=== PATIENT | female | born 1950 | race Caucasian/White ===

== ENCOUNTER → 2018-01-17 | Outpatient (CLI) | payer BC ==
--- NOTE | 2018-01-18 11:45 | MM ---
Reason for exam: screening (asymptomatic). Last mammogram was performed 1 year and 7 months ago. History: Patient is postmenopausal. Physical Findings: A clinical breast exam by your physician is recommended on an annual basis and results should be correlated with mammographic findings. MG Screening Mammo w CAD Bilateral CC and MLO view(s) were taken. Prior study comparison: June 16, 2016, bilateral MG screening mammo w CAD. November 25, 2014, bilateral MG screening mammo w CAD. There are scattered fibroglandular densities. There is no discrete abnormality. No significant changes when compared with prior studies. ASSESSMENT: Negative, BI-RAD 1 RECOMMENDATION: Routine screening mammogram of both breasts in 1 year.
== END | disposition home or self-care (01) ==
LOC: RADMAMWWP 16:16
PROVIDERS: ATTEND Obstetrics & Gynecology
DX: Z12.31 Encounter for screening mammogram for malignant neoplasm of breast (principal)
CPT/HCPCS: 77067

== ENCOUNTER → 2019-07-19 | Outpatient (CLI) | payer BC ==
--- NOTE | 2019-07-19 16:08 | BD ---
EXAMINATION TYPE: Axial Bone Density DATE OF EXAM: 07/19/2019 COMPARISON: 2016 CLINICAL HISTORY: M89.9 Height: 66.5 Weight: 161.5 FRAX RISK QUESTIONS: Alcohol (3 or more units per day): no Family History (Parent hip fracture): no Glucocorticoids (More than 3mos): no (Ex: prednisone, prednisolone, methylprednisolone, dexamethasone, and hydrocortisone). History of Fracture in Adulthood: yes Secondary Osteoporosis: 1. Type 1 Diabetes: no 2. Hyperthyroidism: no 3. Menopause before 45: no 4. Malnutrition: no 5. Chronic liver disease: no Rheumatoid Arthritis: no Current Tobacco Use: no RISK FACTORS HISTORY OF: Family History of Osteoporosis: no Active: yes Diet low in dairy products/other sources of calcium: yes Postmenopausal woman: hysterectomy age 55 MEDICATIONS: vitamins Thyroid Medications: thyroid How Lon-4 years Additional History: EXAM MEASUREMENTS: Bone mineral densitometry was performed using the [employer]. Bone mineral density as measured about the Lumbar spine is: ----- L1-L4(G/cm2): 1.123 T Score Values are as follows: ----- L2: -1.1 ----- L3: -0.6 ----- L4: 0.5 ----- L1-L4: -0.5 Bone mineral density has: increased 2.1 % since study of: 06.16.2016 Bone mineral density about the R hip (g/cm2): 0.755 Bone mineral density about the L hip (g/cm2): 0.828 T Score values are as follows: -----R Neck: -2.0 -----L Neck: -1.5 -----R Total: -0.7 -----L Total: -0.4 Bone mineral density has: increased 1.7 % since study of: 06.16.2016 IMPRESSION: Osteopenia (T Score between -2.5 and -1). There is slightly increased risk of fracture and the patient may be considered for treatment. Re-Screen 2-5 years. NOTE: T-SCORE=SD OF THE YOUNG ADULT MEAN.
--- NOTE | 2019-07-24 09:49 | MM ---
Reason for exam: screening (asymptomatic). Last mammogram was performed 1 year and 6 months ago. History: Patient is postmenopausal. Physical Findings: A clinical breast exam by your physician is recommended on an annual basis and results should be correlated with mammographic findings. MG Screening Mammo w CAD Bilateral CC and MLO view(s) were taken. Prior study comparison: January 17, 2018, bilateral MG screening mammo w CAD. June 16, 2016, bilateral MG screening mammo w CAD. There are scattered fibroglandular densities. No significant changes when compared with prior studies. ASSESSMENT: Negative, BI-RAD 1 RECOMMENDATION: Routine screening mammogram of both breasts in 1 year.
== END | disposition home or self-care (01) ==
LOC: RADMAMWWP 14:27
PROVIDERS: ATTEND Obstetrics & Gynecology
DX: Z12.31 Encounter for screening mammogram for malignant neoplasm of breast (principal); M85.851 Other specified disorders of bone density and structure, right thigh; M85.852 Other specified disorders of bone density and structure, left thigh; M85.88 Other specified disorders of bone density and structure, other site
CPT/HCPCS: 77067; 77080

== ENCOUNTER → 2020-12-30 | Outpatient (CLI) | payer BC ==
--- NOTE | 2021-01-02 10:47 | MM ---
Reason for exam: screening (asymptomatic). Last mammogram was performed 1 year and 5 months ago. History: Patient is postmenopausal. Physical Findings: A clinical breast exam by your physician is recommended on an annual basis and results should be correlated with mammographic findings. MG Screening Mammo w CAD Bilateral CC and MLO view(s) were taken. Prior study comparison: July 19, 2019, bilateral MG screening mammo w CAD. January 17, 2018, bilateral MG screening mammo w CAD. There are scattered fibroglandular densities. No significant changes when compared with prior studies. ASSESSMENT: Negative, BI-RAD 1 RECOMMENDATION: Routine screening mammogram of both breasts in 1 year.
== END | disposition home or self-care (01) ==
LOC: RADMAMWWP 16:25
PROVIDERS: ATTEND Obstetrics & Gynecology
DX: Z12.31 Encounter for screening mammogram for malignant neoplasm of breast (principal)
CPT/HCPCS: 77067

== ENCOUNTER → 2022-08-09 | Outpatient (CLI) | payer MEDICARE ==
--- NOTE | 2022-08-09 19:30 | BD ---
EXAMINATION TYPE: Axial Bone Density DATE OF EXAM: 08/09/2022 CLINICAL HISTORY: 72 years year old Female. ICD-10 CODE: M85.88 DISORDER OF BONE Height: 65 Weight: 163.6 FRAX RISK QUESTIONS: Alcohol (3 or more units per day): NO Family History (Parent hip fracture): NO Glucocorticoids (More than 3mos): NO History of Fracture in Adulthood: PELVIS Secondary Osteoporosis: 1. Type 1 Diabetes: NO 2. Hyperthyroidism: NO 3. Menopause before 45: NO 4. Malnutrition: NO 5. Chronic liver disease: NO Rheumatoid Arthritis: NO Current Tobacco Use: NO RISK FACTORS HISTORY OF: Hip Fracture (Right/Left): NO Spine Fracture: NO History of Wrist Fracture: NO Surgery to Spine/Hip(right/left)/Wrist (right/left): NO Family History of Osteoporosis: NO Active: YES Diet low in dairy products/other sources of calcium: NO Postmenopausal woman: YES Take estrogen and/or progesterone medications: NO Lost more than 2 inches in height since high school: NO Frequent falls: NO Poor Health: NO Hyperparathyroidism: NO Adrenal Insufficiency: NO MEDICATIONS: Prednisone or other steroids: NO Thyroid Medications: SYNTHROID How Long: PAST 7 YEARS Osteoporosis Medications: NO Additional Medications: SYNTHROID, VIT D, Additional History: EXAM MEASUREMENTS: Bone mineral densitometry was performed using the [employer]. Bone mineral density as measured about the Lumbar spine is: ----- L1-L4(G/cm2): 1.167 T Score Values are as follows: ----- L1: -0.8 ----- L2: -0.7 ----- L3: 0.3 ----- L4: 0.3 ----- L1-L4: -0.1 Bone mineral density has: INCREASED 6.0 % since study of: 06/16/2016 Bone mineral density about the R hip (g/cm2): 0.741 Bone mineral density about the L hip (g/cm2): 0.777 T Score values are as follows: -----R Neck: -2.1 -----L Neck: -1.9 -----R Total: -0.5 -----L Total: -0.4 Bone mineral density has: INCREASED 3.3 % since study of: 06/16/2016 FRAX%s: The graph provided illustrates a 13.7% chance for a major osteoporotic fx and a 3.4% chance f or the hips probability for fx in 10 years time. IMPRESSION: Osteopenia (T Score between -2.5 and -1). There is slightly increased risk of fracture and the patient may be considered for treatment. Re-Screen 2-5 years. NOTE: T-SCORE=SD OF THE YOUNG ADULT MEAN.
--- NOTE | 2022-08-10 09:22 | MM ---
Reason for Exam: Screening (asymptomatic). Last mammogram was performed 1 year(s) and 7 month(s) ago. Patient History: Menarche at age 12. First Full-Term at age 23. Left ovary removed at age 52. Right ovary removed at age 52. Hysterectomy at age 52. Postmenopausal. Risk Values: Oly 5 year model risk: 1.6%. NCI Lifetime model risk: 3.9%. Prior Study Comparison: 01/17/2018 Bilateral Screening Mammogram, [facility]. 07/19/2019 Bilateral Screening Mammogram, [facility]. 12/30/2020 Bilateral Screening Mammogram, [facility]. Tissue Density: There are scattered fibroglandular densities. Findings: Analyzed By CAD. There is no suspicious group of microcalcifications or new suspicious mass in either breast. No significant change from prior exams. Overall Assessment: Negative, BI-RAD 1 Management: Screening Mammogram of both breasts in 1 year. A clinical breast exam by your physician is recommended on an annual basis and results should be correlated with mammographic findings. Electronically signed and approved by: Christian Patterson D.O.
== END | disposition home or self-care (01) ==
LOC: RADMAMWWP 15:17
PROVIDERS: ATTEND Obstetrics & Gynecology
DX: Z12.31 Encounter for screening mammogram for malignant neoplasm of breast (principal); M85.851 Other specified disorders of bone density and structure, right thigh; Z78.0 Asymptomatic menopausal state
CPT/HCPCS: 77063; 77067; 77080

== ENCOUNTER → 2024-03-13 | Outpatient (CLI) | payer MEDICARE ==
--- NOTE | 2024-03-14 21:46 | MM ---
Reason for Exam: Screening (asymptomatic). Last mammogram was performed 1 year(s) and 7 month(s) ago. Patient History: Menarche at age 12. First Full-Term at age 23. Left ovary removed at age 52. Right ovary removed at age 52. Hysterectomy at age 52. Postmenopausal. Risk Values: Oly 5 year model risk: 1.6%. NCI Lifetime model risk: 3.7%. Prior Study Comparison: 06/16/2016 Bilateral Screening Mammogram, [facility]. 01/17/2018 Bilateral Screening Mammogram, [facility]. 07/19/2019 Bilateral Screening Mammogram, [facility]. 12/30/2020 Bilateral Screening Mammogram, [facility]. 08/09/2022 Bilateral MG 3D screening mammo w/cad, [facility]. Tissue Density: There are scattered areas of fibroglandular density. Findings: Analyzed By CAD. There is no suspicious group of microcalcifications or new suspicious mass in either breast. Overall Assessment: Negative, BI-RAD 1 Management: Screening Mammogram of both breasts in 1 year. . Patient should continue monthly self-breast exams. A clinical breast exam by your physician is recommended on an annual basis. This exam should not preclude additional follow-up of suspicious palpable abnormalities. Note on Oly scores and lifetime risk: 1. A Oly score greater than 3% is considered moderate risk. If this is the case, consider specialist referral to assess eligibility for a risk reducing agent. 2. If overall lifetime risk for the development of breast cancer is 20% or higher, the patient may qualify for future screening with alternating mammogram and breast MRI. Electronically signed and approved by: Kimberly Wells M.D. Radiologist
== END | disposition home or self-care (01) ==
LOC: RADMAMWWP 09:33
PROVIDERS: ATTEND Family Medicine
DX: Z12.31 Encounter for screening mammogram for malignant neoplasm of breast (principal); Z78.0 Asymptomatic menopausal state
CPT/HCPCS: 77063; 77067

== ENCOUNTER 2025-03-24 23:52 | Observation (INO) | payer MEDICARE ==
--- NOTE | 2025-03-25 00:33 | ED ---
Dizziness HPI - General Chief Complaint: Syncope Stated Complaint: high blood pressure, dizziness Time Seen by Provider: 03/25/25 00:13 Source: patient, RN notes reviewed, old records reviewed Mode of arrival: ambulatory Limitations: no limitations - History of Present Illness Initial Comments: This is a 74 female to ER for evaluation of dizziness, syncopal episode after she woke up today dizziness and vertigo tonight room spinning lightheadedness and feels like she was going to pass out again. Patient has history of vertigo this does feel different. No headache chest pain shortness of breath or abdominal pain. Patient has no new complaints does have concern for vertigo with nausea and elevated blood pressure MD Complaint: dizziness, near syncope -: hour(s) Timing: sudden onset, awoke with symptoms, intermittent Description: "room spinning", lightheadedness, near-syncope History of Same: Yes History of Trauma: No Severity: moderate Worsens With: nothing Associated Symptoms: denies other symptoms - Related Data Allergies Allergy/AdvReac Type Severity Reaction Status Date / Time No Known Allergies Allergy Verified 03/25/25 00:02 Review of Systems ROS Statement: Those systems with pertinent positive or pertinent negative responses have been documented in the HPI. ROS Other: All systems not noted in ROS Statement are negative. Past Medical History Past Medical History: Thyroid Disorder History of Any Multi-Drug Resistant Organisms: None Reported Past Surgical History: Hysterectomy Past Psychological History: No Psychological Hx Reported Smoking Status: Never smoker Past Alcohol Use History: None Reported Past Drug Use History: None Reported General Exam Limitations: no limitations General appearance: alert, in no apparent distress Head exam: Present: atraumatic, normocephalic, normal inspection Eye exam: Present: normal appearance, PERRL, EOMI. Absent: scleral icterus, conjunctival injection, periorbital swelling ENT exam: Present: normal exam, mucous membranes moist Neck exam: Present: normal inspection. Absent: tenderness, meningismus, lymphadenopathy Respiratory exam: Present: normal lung sounds bilaterally. Absent: respiratory distress, wheezes, rales, rhonchi, stridor Cardiovascular Exam: Present: regular rate, normal rhythm, normal heart sounds. Absent: systolic murmur, diastolic murmur, rubs, gallop, clicks GI/Abdominal exam: Present: soft, normal bowel sounds. Absent: distended, tenderness, guarding, rebound, rigid Extremities exam: Present: normal inspection, full ROM, normal capillary refill. Absent: tenderness, pedal edema, joint swelling, calf tenderness Back exam: Present: normal inspection Neurological exam: Present: alert, oriented X3, CN II-XII intact Psychiatric exam: Present: normal affect, normal mood Skin exam: Present: warm, dry, intact, normal color. Absent: rash Course Vital Signs 03/25/25 03/25/25 00:03 02:40 Temperature 97.8 F Pulse Rate 83 77 Respiratory 18 18 Rate Blood Pressure 183/120 151/91 O2 Sat by Pulse 97 95 Oximetry - Reevaluation(s) Reevaluation #1: 03/25/25 01:48 Medical records reviewed Reevaluation #2: 03/25/25 03:22 Patient is still feeling of significant dizziness and near syncopal events, feels unwell but no recurrent syncope Reevaluation #3: 03/25/25 03:23 Patient informed of results questions answered Reevaluation #4: Was pt. sent in by a medical professional or institution (, PA, CHIEF ARCHITECT, urgent care, hospital, or usp...) When possible be specific @ -no Did you speak to anyone other than the patient for history (EMS, parent, family, police, friend...)? What history was obtained from this source @ -no Did you review nursing and triage notes (agree or disagree)? Why? @ -agree Are old charts reviewed (outside hosp., previous admission, EMS record, old EKG, old radiological studies, urgent care reports/EKG's, usp records)? Report findings @ -yes Differential Diagnosis (chest pain, altered mental status, abdominal pain women, abdominal pain men, vaginal bleeding, weakness, fever, dyspnea, syncope, headache, dizziness, GI bleed, back pain, seizure, CVA, palpatations, mental health, musculoskeletal)? @ -prior EKG interpreted by me (3pts min.). @ -yes X-rays interpreted by me (1pt min.). @ -yes negative for acute disease CT interpreted by me (1pt min.). @ -no U/S interpreted by me (1pt. min.). @ -no What testing was considered but not performed or refused? (CT, X-rays, U/S, labs)? Why? @ -none What meds were considered but not given or refused? Why? @ -none Did you discuss the management of the patient with other professionals (professionals i.e. , PA, CHIEF ARCHITECT, lab, RT, psych nurse, social staff worker, centrifugal chiller technician, teacher, home school liaison officer, case finishing machine adjuster)? Give summary @ -no Was smoking cessation discussed for >3mins.? @ -no Was critical care preformed (if so, how long)? @ -no Were there social determinants of health that impacted care today? How? (Homelessness, low income, unemployed, alcoholism, drug addiction, transportation, low edu. Level, literacy, decrease access to med. care, intermediate, rehab)? @ -none Was there de-escalation of care discussed even if they declined (Discuss DNR or withdrawal of care, Hospice)? DNR status @ -no What co-morbidities impacted this encounter? (DM, HTN, Smoking, COPD, CAD, Cancer, CVA, ARF, Chemo, Hep., AIDS, mental health diagnosis, sleep apnea, morbid obesity)? @ -none Was patient admitted / discharged? Hospital course, mention meds given and route, prescriptions, significant lab abnormalities, going to OR and other pertinent info. @ - Undiagnosed new problem with uncertain prognosis? @ -no Drug Therapy requiring intensive monitoring for toxicity (Heparin, Nitro, Insulin, Cardizem)? @ -no Were any procedures done? @ -no Diagnosis/symptom? @ - Acute, or Chronic, or Acute on Chronic? @ -Acute Uncomplicated (without systemic symptoms) or Complicated (systemic symptoms)? @ -Complicated Side effects of treatment? @ -no Exacerbation, Progression, or Severe Exacerbation? @ -exacerbation Poses a threat to life or bodily function? How? (Chest pain, [place], [place], pneumonia, PE, COPD, DKA, ARF, appy, cholecystitis, CVA, Diverticulitis, Homicidal, [place] icidal, threat to staff... and all critical care pts) @ -yes Reevaluation #5: Differential Dizziness: Benign paroxysmal positional Vertigo, Meniere's disease, otitis media, acoustic neuroma, vertebrobasilar insufficiency, cerebellar stroke, encephalitis, hypovolemic, arrhythmia, coronary artery syndrome, anemia, this is not meant to be an all-inclusive list Differential Syncope: Valvular disease, hypertrophic cardiomyopathy, pulmonary embolism, tamponade, tachycardia, bradycardia, [place], hypovolemia, hemorrhage, dissection, anemia, intracranial hemorrhage, seizure, hypoglycemia, carbon monoxide poisoning, this is not meant to be an all-inclusive list. - Consultations Consultation #1: With [facility] who agrees to admit this patient EKG Findings - EKG Comments: EKG Findings:: EKG is sinus 76 RI 207 QRS 88 QTc 409 - EKG Results: EKG: interpreted by TANVIR Medical Decision Making - Medical Decision Making 74 female will be admitted for dizziness multiple near syncopal events and vertiginous symptoms feels unwell and will be admitted for monitoring neuro and cardiology see - Lab Data Result diagrams: 03/25/25 00:34 03/25/25 00:34 Lab Results 03/25/25 03/25/25 03/25/25 Range/Units 00:34 00:34 00:34 WBC 9.39 (4.50-10.00) 10*3/uL RBC 4.73 (4.10-5.20) 10*6/uL Hgb 14.2 (12.0-15.0) g/dL Hct 42.8 (37.2-46.3) % MCV 90.5 (80.0-97.0) fL MCH 30.0 (27.0-32.0) pg MCHC 33.2 (32.0-37.0) g/dL Plt Count 292 (140-440) 10*3/uL MPV 9.4 L (9.5-12.2) fL Immature Gran % (Auto) 0.2 % Neutrophils % 64.6 % Lymphocytes % 26.8 % Monocytes % 7.5 % Eosinophils % 0.0 % Basophils % 0.9 % Immature Gran # 0.02 (0.00-0.04) 10*3/uL Neutrophils # 6.07 (1.80-7.70) 10*3/uL Lymphocytes # 2.52 (0.90-5.00) 10*3/uL Monocytes # 0.70 (0.20-1.00) 10*3/uL Eosinophils # 0.00 L (0.04-0.35) 10*3/uL Basophils # 0.08 (0.00-0.10) 10*3/uL PT 10.6 (10.0-12.5) sec INR 0.9 (<1.2) APTT 22.0 (22.0-30.0) sec D-Dimer 0.36 (<0.60) mg/L FEU Sodium 139 (137-145) mmol/L Potassium 3.6 (3.5-5.1) mmol/L Chloride 101 (98-107) mmol/L Carbon Dioxide 25 (22-30) mmol/L Anion Gap 13 mmol/L BUN 12 (7-17) mg/dL Creatinine 0.65 (0.52-1.04) mg/dL Est GFR (CKD-EPI)AfAm >90 (>60 ml/min/1.73 sqM) Est GFR (CKD-EPI)NonAf 87 (>60 ml/min/1.73 sqM) Glucose 140 H (74-99) mg/dL Plasma Lactic Acid Lester (0.7-2.0) mmol/L Calcium 9.4 (8.4-10.2) mg/dL Phosphorus 3.4 (2.5-4.5) mg/dL Magnesium 1.8 (1.6-2.3) mg/dL Total Bilirubin 0.5 (0.2-1.3) mg/dL AST 32 (14-36) U/L ALT 26 (4-34) U/L Alkaline Phosphatase 86 (38-126) U/L Troponin I (0.000-0.034) ng/mL NT-Pro-B Natriuret Pep 56 pg/mL Total Protein 7.6 (6.3-8.2) g/dL Albumin 4.4 (3.5-5.0) g/dL 03/25/25 03/25/25 Range/Units 00:34 00:34 WBC (4.50-10.00) 10*3/uL RBC (4.10-5.20) 10*6/uL Hgb (12.0-15.0) g/dL Hct (37.2-46.3) % MCV (80.0-97.0) fL MCH (27.0-32.0) pg MCHC (32.0-37.0) g/dL Plt Count (140-440) 10*3/uL MPV (9.5-12.2) fL Immature Gran % (Auto) % Neutrophils % % Lymphocytes % % Monocytes % % Eosinophils % % Basophils % % Immature Gran # (0.00-0.04) 10*3/uL Neutrophils # (1.80-7.70) 10*3/uL Lymphocytes # (0.90-5.00) 10*3/uL Monocytes # (0.20-1.00) 10*3/uL Eosinophils # (0.04-0.35) 10*3/uL Basophils # (0.00-0.10) 10*3/uL PT (10.0-12.5) sec INR (<1.2) APTT (22.0-30.0) sec D-Dimer (<0.60) mg/L FEU Sodium (137-145) mmol/L Potassium (3.5-5.1) mmol/L Chloride (98-107) mmol/L Carbon Dioxide (22-30) mmol/L Anion Gap mmol/L BUN (7-17) mg/dL Creatinine (0.52-1.04) mg/dL Est GFR (CKD-EPI)AfAm (>60 ml/min/1.73 sqM) Est GFR (CKD-EPI)NonAf (>60 ml/min/1.73 sqM) Glucose (74-99) mg/dL Plasma Lactic Acid Lester 1.9 (0.7-2.0) mmol/L Calcium (8.4-10.2) mg/dL Phosphorus (2.5-4.5) mg/dL Magnesium (1.6-2.3) mg/dL Total Bilirubin (0.2-1.3) mg/dL AST (14-36) U/L ALT (4-34) U/L Alkaline Phosphatase (38-126) U/L Troponin I <0.012 (0.000-0.034) ng/mL NT-Pro-B Natriuret Pep pg/mL Total Protein (6.3-8.2) g/dL Albumin (3.5-5.0) g/dL - EKG Data -: EKG Interpreted by Me - Radiology Data Radiology results: report reviewed (CT brain and CTA head neck negative for acute disease), image reviewed Disposition Clinical Impression: Dizziness, Vertigo, Near syncope Disposition: ADMITTED IP TO THIS [facility] Condition: Fair Is patient prescribed a controlled substance at d/c from ED?: No Referrals: José Miguel Gama MD [Primary Care Provider] - 1-2 days Time of Disposition: :20
[2025-03-25 00:41] LABS: Basophils # (A) 0.08 10*3/uL (0.00-0.10); Basophils % (A) 0.9 %; HCT 42.8 % (37.2-46.3); HGB 14.2 g/dL (12.0-15.0); Lymphocytes # (A) 2.52 10*3/uL (0.90-5.00); Lymphocytes % (A) 26.8 %; MCHC 33.2 g/dL (32.0-37.0); MCV 90.5 fL (80.0-97.0); Mean Platelet Volume 9.4 fL (9.5-12.2); Monocytes % (A) 7.5 %; Neutrophils # (A) 6.07 10*3/uL (1.80-7.70); Neutrophils % (A) 64.6 %; Platelet Count 292 10*3/uL (140-440); RBC 4.73 10*6/uL (4.10-5.20); RDW 12.9 % (11.5-14.5); WBC 9.39 10*3/uL (4.50-10.00)
[2025-03-25] MEDS: SODIUM CHLORIDE 0.9% 1,000 ML IV ONE (00:48)
[2025-03-25 00:58] LABS: ALT 26 U/L (4-34); AST 32 U/L (14-36); African American GFR (CKD) >90 (>60 ml/min/1.73 sqM); Albumin 4.4 g/dL (3.5-5.0); Alkaline Phosphatase 86 U/L (38-126); Anion Gap 13 mmol/L; Blood Urea Nitrogen 12 mg/dL (7-17); Calcium 9.4 mg/dL (8.4-10.2); Carbon Dioxide 25 mmol/L (22-30); Chloride 101 mmol/L (98-107); Glucose 140 mg/dL (74-99); Magnesium 1.8 mg/dL (1.6-2.3); Non-African American GFR(CKD) 87 (>60 ml/min/1.73 sqM); Phosphorus 3.4 mg/dL (2.5-4.5); Potassium 3.6 mmol/L (3.5-5.1); Sodium 139 mmol/L (137-145); Total Bilirubin 0.5 mg/dL (0.2-1.3); Total Protein 7.6 g/dL (6.3-8.2)
[2025-03-25 01:04] LABS: INR 0.9 (<1.2); Prothrombin Time 10.6 sec (10.0-12.5)
[2025-03-25 01:07] LABS: NT-Pro-B-Type Natriuretic Pept 56 pg/mL
--- NOTE | 2025-03-25 02:16 | CT ---
EXAM: CT Head Without Intravenous Contrast CLINICAL HISTORY: ITS.REASON CT Reason: vertigo TECHNIQUE: Axial computed tomography images of the head/brain without intravenous contrast. CTDI is 48.9 mGy and DLP is 1137.8 mGy-cm. This CT exam was performed using one or more of the following dose reduction techniques: automated exposure control, adjustment of the mA and/or kV according to patient size, and/or use of iterative reconstruction technique. COMPARISON: No relevant prior studies available. FINDINGS: Brain: Age-related cerebral volume loss. Periventricular and subcortical white matter hypoattenuation, consistent with chronic microangiopathy. No acute intracranial hemorrhage. No midline shift or mass effect. Ventricles: Unremarkable. No ventriculomegaly. Bones/joints: Unremarkable. No acute fracture. Soft tissues: Unremarkable. Sinuses: Unremarkable as visualized. No acute sinusitis. Mastoid air cells: Unremarkable as visualized. No mastoid effusion. IMPRESSION: No acute intracranial hemorrhage. No midline shift or mass effect.
--- NOTE | 2025-03-25 02:55 | CT ---
EXAM: CT Angiography Head With Intravenous Contrast CLINICAL HISTORY: ITS.REASON CT Reason: vertigo TECHNIQUE: Axial computed tomographic angiography images of the head with intravenous contrast. CTDI is 19.95 mGy and DLP is 209.55 mGy-cm. This CT exam was performed using one or more of the following dose reduction techniques: automated exposure control, adjustment of the mA and/or kV according to patient size, and/or use of iterative reconstruction technique. MIP reconstructed images were created and reviewed. COMPARISON: No relevant prior studies available. FINDINGS: Right internal carotid artery: No significant stenosis. No aneurysm. Right anterior cerebral artery: No significant stenosis. No aneurysm. Right middle cerebral artery: No significant stenosis. No aneurysm. Right posterior cerebral artery: No significant stenosis. No aneurysm. Right vertebral artery: Unremarkable. Left internal carotid artery: No significant stenosis. No aneurysm. Left anterior cerebral artery: No significant stenosis. No aneurysm. Left middle cerebral artery: No significant stenosis. No aneurysm. Left posterior cerebral artery: No significant stenosis. No aneurysm. Left vertebral artery: Unremarkable. Basilar artery: No significant stenosis. No aneurysm. IMPRESSION: No significant stenosis. EXAM: CT Angiography Neck With Intravenous Contrast CLINICAL HISTORY: ITS.REASON CT Reason: vertigo TECHNIQUE: Routine carotid CT angiography protocol was performed with intravenous contrast. NASCET criteria using the distal ICAs for comparison were used for evaluation of stenoses. CTDI is 19.95 mGy and DLP is 209.55 mGy-cm. This CT exam was performed using one or more of the following dose reduction techniques: automated exposure control, adjustment of the mA and/or kV according to patient size, and/or use of iterative reconstruction technique. MIP reconstructed images were created and reviewed. COMPARISON: None. FINDINGS: VASCULATURE: Right common carotid artery: No significant stenosis. No dissection. Right internal carotid artery: No significant stenosis. No dissection. Right vertebral artery: No significant stenosis. No dissection. Left common carotid artery: No significant stenosis. No dissection. Left internal carotid artery: No significant stenosis. No dissection. Left vertebral artery: No significant stenosis. No dissection. NECK: Lung apices: Clear. CAROTID STENOSIS REFERENCE USING NASCET CRITERIA: % ICA stenosis = (1 - narrowest ICA diameter/diameter of distal cervical ICA) x 100. Mild - <50% stenosis. Moderate - 50-69% stenosis. Severe - 70-94% stenosis. Near occlusion - 95-99% stenosis. Occluded - 100% stenosis. IMPRESSION: No significant stenosis.
[2025-03-25] MEDS ORDERED: NALOXONE 0.4 MG/ML 1 ML VIAL IV PRN (03:15)
[2025-03-25] MEDS: ONDANSETRON 4 MG/2 ML VIAL IVP PRN (03:56)
[2025-03-25] MEDS: SODIUM CHLORIDE 0.9% 1,000 ML IV SCH (03:57)
--- NOTE | 2025-03-25 08:26 | P.HPIM ---
History of Present Illness H&P Date: 03/25/25 This is a 74-year-old female who presented to the emergency department with complaints of dizziness and syncopal episode after she woke up yesterday morning. Patient reports she has felt like the room is spinning and feels like she could pass out again. Patient does have a history of vertigo but reports this feeling feels different. Patient denies any chest pain. She does report a few episodes of vomiting yesterday. Patient seen this morning laying in bed resting comfortably. She is still reporting vertigo. CT of the brain was normal. Home medications not listed at time of dictation. Review of Systems Constitutional: Denies chills, Denies fever Ears, nose, mouth and throat: Reports vertigo Cardiovascular: Denies chest pain, Denies dyspnea on exertion Respiratory: Denies cough, Denies dyspnea Musculoskeletal: Denies arm numbness/tingling, Denies leg numbness/tingling Neurological: Reports vertigo, Denies headaches Past Medical History Past Medical History: Thyroid Disorder History of Any Multi-Drug Resistant Organisms: None Reported Past Surgical History: Hysterectomy Past Psychological History: No Psychological Hx Reported Smoking Status: Never smoker Past Alcohol Use History: None Reported Past Drug Use History: None Reported Medications and Allergies Allergies Allergy/AdvReac Type Severity Reaction Status Date / Time No Known Allergies Allergy Verified 03/25/25 00:02 Physical Exam Vitals: Vital Signs Temp Pulse Pulse Pulse Pulse Resp BP 03/25/25 07:00 97.6 F 88 16 03/25/25 04:21 97.5 F L 84 84 80 18 03/25/25 03:58 74 17 151/93 03/25/25 02:40 77 18 151/91 03/25/25 00:03 97.8 F 83 18 183/120 BP BP BP Pulse Ox 03/25/25 07:00 148/83 93 L 03/25/25 04:21 154/90 149/88 142/87 97 03/25/25 03:58 97 03/25/25 02:40 95 03/25/25 00:03 97 Intake and Output 03/24/25 03/25/25 03/25/25 22:59 06:59 14:59 Other: # Voids 1 1 Weight 74.843 kg - Constitutional General appearance: cooperative, no acute distress - EENT Eyes: PERRLA - Neck Neck: no lymphadenopathy, normal ROM, no rigidity - Respiratory Respiratory: bilateral: CTA - Cardiovascular Heart sounds: normal: S1, S2 - Gastrointestinal General gastrointestinal: soft, no tenderness - Integumentary Integumentary: normal, normal turgor - Musculoskeletal Musculoskeletal: strength equal bilaterally - Psychiatric Psychiatric: A&O x's 3, appropriate affect, intact judgment & insight Results CBC & Chem 7: 03/25/25 00:34 03/25/25 00:34 Labs: Abnormal Lab Results - Last 24 Hours (Table) 03/25/25 03/25/25 Range/Units 00:34 00:34 MPV 9.4 L (9.5-12.2) fL Eosinophils # 0.00 L (0.04-0.35) 10*3/uL Glucose 140 H (74-99) mg/dL Thrombosis Risk Factor Assmnt - Choose All That Apply Any of the Below Risk Factors Present?: Yes Each Factor Represents 1 point: Obesity (BMI >25) Other Risk Factors: Yes Each Risk Factor Represents 3 Points: Age 75 years or older Other congenital or acquired thrombophilia - If yes, enter type in comment: No Thrombosis Risk Factor Assessment Total Risk Factor Score: 4 Thrombosis Risk Factor Assessment Level: Moderate Risk Assessment and Plan (1) Dizziness Current Visit: Yes Status: Acute Code(s): R42 - DIZZINESS AND GIDDINESS SNOMED Code(s): 373058313 (2) Near syncope Current Visit: Yes Status: Acute Code(s): R55 - SYNCOPE AND COLLAPSE SNOMED Code(s): 628881522 (3) Vertigo Current Visit: Yes Status: Acute Code(s): R42 - DIZZINESS AND GIDDINESS SNOMED Code(s): 312308800 Plan: Await consults with neurology and cardiology. Order an Echo. Patient seen and evaluated by nurse practitioner, physician in agreement with plan.
--- NOTE | 2025-03-25 09:50 | P.CRDCN ---
History of Present Illness History of present illness: HISTORY OF PRESENTING ILLNESS This is a pleasant 74-year-old female past medical history significant for hypothyroidism. 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 We have been asked to see in consultation for syncope. Yesterday she went for a walk and after walking a short distance she started feeling weak in the legs with no strength. She had to go down to the ground to prevent falling. She did not have actual syncope or loss of consciousness. Today she still feels mildly lightheaded with position changes. No palpitations, chest pain or shortness of breath. Orthostatic vital signs negative, BP actually increases with position change. DIAGNOSTICS EKG reveals sinus rhythm with sinus arrhythmia heart rate of 76. Telemetry tracings indicate unremarkable with no arrhythmia or bradycardia noted. CT angiography is negative. Laboratory reviewed, CBC unremarkable, D-dimer negative, sodium 139, potassium 3.6, creatinine 0.65, NT proBNP 56 and troponin negative x 1. She takes no daily cardiac medications. REVIEW OF SYSTEMS At the time of my exam: CONSTITUTIONAL: Denies fever or chills. CARDIOVASCULAR: Denies chest pain, shortness of breath, orthopnea, PND or palpitations. RESPIRATORY: Denies cough. GASTROINTESTINAL: Denies abdominal pain, diarrhea, constipation, nausea or vomiting. MUSCULOSKELETAL: Denies myalgias. NEUROLOGIC: Denies numbness, tingling, headache or weakness. ENDOCRINE: Denies fatigue, weight change, polydipsia or polyurina. GENITOURINARY: Denies burning, hematuria or urgency with micturation. HEMATOLOGIC: Denies history of anemia or bleeding. PHYSICAL EXAMINATION Blood pressure [] heart rate [] afebrile and maintaining oxygen saturation on []. CONSTITUTIONAL: No apparent distress. HEENT: Head is normocephalic. Pupils are equal, round. Sclerae anicteric. Mucous membranes of the mouth are moist. No JVD. No carotid bruit. CHEST EXAMINATION: Lungs are clear to auscultation. No chest wall tenderness is noted on palpation or with deep breathing. HEART EXAMINATION: Regular rate and rhythm. S1, S2 heard. No murmurs, gallops or rub. ABDOMEN: Soft, nontender. EXTREMITIES: 2+ peripheral pulses, no lower extremity edema and no calf tenderness. NEUROLOGIC EXAMINATION: Patient is awake, alert and oriented x3. ASSESSMENT Dizziness suggestive of vertigo Hypothyroidism PLAN Obtain 2D echo and doppler study. Continue with neuro evaluation. Stable from a cardiac perspective. Follow up on discharge with Dr. Strange. Thank you kindly for this consultation. Nurse Practitioner note has been reviewed, I agree with a documented findings and plan of care. Patient was seen and examined. Past Medical History Past Medical History: Thyroid Disorder History of Any Multi-Drug Resistant Organisms: None Reported Past Surgical History: Hysterectomy Past Psychological History: No Psychological Hx Reported Smoking Status: Never smoker Past Alcohol Use History: None Reported Past Drug Use History: None Reported Medications and Allergies Allergies Allergy/AdvReac Type Severity Reaction Status Date / Time No Known Allergies Allergy Verified 03/25/25 00:02 Physical Exam Vitals: Vital Signs Temp Pulse Pulse Pulse Pulse Resp BP 03/25/25 07:00 97.6 F 88 16 03/25/25 04:21 97.5 F L 84 84 80 18 03/25/25 03:58 74 17 151/93 03/25/25 02:40 77 18 151/91 03/25/25 00:03 97.8 F 83 18 183/120 BP BP BP Pulse Ox 03/25/25 07:00 148/83 93 L 03/25/25 04:21 154/90 149/88 142/87 97 03/25/25 03:58 97 03/25/25 02:40 95 03/25/25 00:03 97 Intake and Output 03/24/25 03/25/25 03/25/25 22:59 06:59 14:59 Other: # Voids 1 1 Weight 74.843 kg Results 03/25/25 00:34 03/25/25 00:34 Cardiac Enzymes 03/25/25 03/25/25 Range/Units 00:34 00:34 AST 32 (14-36) U/L Troponin I <0.012 (0.000-0.034) ng/mL Coagulation 03/25/25 Range/Units 00:34 PT 10.6 (10.0-12.5) sec APTT 22.0 (22.0-30.0) sec CBC 03/25/25 Range/Units 00:34 WBC 9.39 (4.50-10.00) 10*3/uL RBC 4.73 (4.10-5.20) 10*6/uL Hgb 14.2 (12.0-15.0) g/dL Hct 42.8 (37.2-46.3) % Plt Count 292 (140-440) 10*3/uL Comprehensive Metabolic Panel 03/25/25 Range/Units 00:34 Sodium 139 (137-145) mmol/L Potassium 3.6 (3.5-5.1) mmol/L Chloride 101 (98-107) mmol/L Carbon Dioxide 25 (22-30) mmol/L BUN 12 (7-17) mg/dL Creatinine 0.65 (0.52-1.04) mg/dL Glucose 140 H (74-99) mg/dL Calcium 9.4 (8.4-10.2) mg/dL AST 32 (14-36) U/L ALT 26 (4-34) U/L Alkaline Phosphatase 86 (38-126) U/L Total Protein 7.6 (6.3-8.2) g/dL Albumin 4.4 (3.5-5.0) g/dL Current Medications Generic Name Dose Route Start Last Admin Trade Name Freq PRN Reason Stop Dose Admin Amlodipine Besylate 5 mg 03/25/25 09:00 Amlodipine 5 Mg Tab PO DAILY TAYLOR Sodium Chloride 1,000 mls @ 75 mls/hr 03/25/25 03:15 03/25/25 03:57 Saline 0.9% IV 75 mls/hr .[id number] TAYLOR Administration Metoprolol Tartrate 12.5 mg 03/25/25 09:00 Metoprolol Tartrate 12.5 Mg Tab PO BID TAYLOR Naloxone HCl 0.2 mg 03/25/25 03:15 Naloxone 0.4 Mg/Ml 1 Ml Vial IV Q2M PRN Opioid Reversal Ondansetron HCl 4 mg 03/25/25 03:15 03/25/25 03:56 Ondansetron 4 Mg/2 Ml Vial IVP 4 mg Q8HR PRN Administration Nausea And Vomiting Intake and Output 03/24/25 03/25/25 03/25/25 22:59 06:59 14:59 Other: # Voids 1 1 Weight 74.843 kg 03/25/25 00:34 03/25/25 00:34
[2025-03-25] MEDS: amLODIPine 5 MG TAB PO SCH (10:13)
[2025-03-25] MEDS: METOPROLOL TARTRATE 12.5 MG TAB PO SCH (10:13)
--- NOTE | 2025-03-25 11:49 | P.CNNES ---
History of Present Illness Consult date: 03/25/25 Requesting physician: Aly Campbell Reason for Consult: vertigo History of Present Illness: This is a 74-year-old woman who presents emergency department because of dizziness. Patient states that yesterday she woke up around 7 AM and she was feeling dizzy and she felt the room spinning. She states that she is having dizziness with movement. Yesterday when she woke up she felt dizzy and then fell to the ground but denies passing out. Later during the day she felt she had nausea and she had also had vomiting. She denies any ringing of the ears, any focal weakness, any speech difficulty, and difficulty swallowing or vision issues. Denies any head trauma or any recent sickness. Patient has dizziness with movement and alleviated with rest. Denies any history of stroke. Denies any tobacco, alcohol or illicit drug use. Denies being on any antiplatelet. Denies any history of A-fib. Some of the workup during this hospital visit consisted of: Orthostatic vitals is negative. I reviewed the lab workup. CT of the head is reported as no acute intracranial hemorrhage. I reviewed the CT and agree with the report. CT angiography of the head and neck is reported as no significant stenosis. Review of Systems As per HPI. Past Medical History Past Medical History: Thyroid Disorder History of Any Multi-Drug Resistant Organisms: None Reported Past Surgical History: Hysterectomy Past Psychological History: No Psychological Hx Reported Smoking Status: Never smoker Past Alcohol Use History: None Reported Past Drug Use History: None Reported Medications and Allergies Home Medications Medication Instructions Recorded Confirmed Type Levothyroxine Sodium [Synthroid] 62.5 mcg PO DAILY 03/25/25 03/25/25 History Allergies Allergy/AdvReac Type Severity Reaction Status Date / Time No Known Allergies Allergy Verified 03/25/25 11:08 Physical Examination - Vital Signs Vital Signs: Vital Signs Temp Pulse Pulse Pulse Pulse Resp BP 03/25/25 07:00 97.6 F 88 16 03/25/25 04:21 97.5 F L 84 84 80 18 03/25/25 03:58 74 17 151/93 03/25/25 02:40 77 18 151/91 03/25/25 00:03 97.8 F 83 18 183/120 BP BP BP Pulse Ox 03/25/25 07:00 148/83 93 L 03/25/25 04:21 154/90 149/88 142/87 97 03/25/25 03:58 97 03/25/25 02:40 95 03/25/25 00:03 97 Intake and Output 03/24/25 03/25/25 03/25/25 22:59 06:59 14:59 Intake Total 100 Balance 100 Intake: Oral 100 Other: # Voids 1 1 Weight 74.843 kg GENERAL: The patient is lying in bed and is not in acute distress. NEUROLOGICAL: Higher mental function: The patient is awake, alert, oriented to self, place and time. Patient is following commands. No aphasia and no neglect. Cranial nerves: The pupils are round, equal and reactive to light and accommodation. Visual rico are full to confrontation throughout. Extraocular movement is intact no nystagmus is noted. Facial sensation is normal to touch throughout. The facial strength is normal throughout. Hearing is normal bilaterally to hand rub. Tongue is midline and moved [id number] without any difficulty. No dysarthria is noted. Shoulder shrug is normal bilaterally. Motor: The strength is 5 over 5 throughout. Normal tone and bulk. Cerebellum: Normal finger to nose heel to cooper bilaterally. Sensation: Sensation is normal to touch throughout. Reflexes (right/left): 2+ throughout. Plantars are downgoing bilaterally. Results - Laboratory Findings CBC and BMP: 03/25/25 00:34 03/25/25 00:34 Abnormal Lab Findings: Abnormal Labs 03/25/25 03/25/25 00:34 00:34 MPV 9.4 L Eosinophils # 0.00 L Glucose 140 H Assessment and Plan Assessment: This is a 74-year-old woman who presents emergency department because of dizziness upon waking up and she feels dizziness is with ambulation and she fell to the ground. She denies any loss of consciousness Acute vertigo and this seems more likely peripheral. Rule out stroke Plan: I ordered MRI of the brain with and without I started the patient on meclizine 25 mg 1 tablet 3 times daily scheduled for 7 days and after that as needed. If MRI of the brain is negative then recommend the patient to be eval by ENT and recommend vestibular rehab therapy as an outpatient if continues to have symptoms. Will defer the rest of the medical management to primary and other specialist Thank you for the consultation. Time with Patient: Greater than 30
[2025-03-25] MEDS: LEVOTHYROXINE 125 MCG TAB PO SCH (12:31)
[2025-03-25] MEDS: MECLIZINE 25 MG TAB PO SCH (12:31)
[2025-03-25 20:12] VITALS: RESP 16
[2025-03-26] MEDS: LEVOTHYROXINE 125 MCG TAB PO SCH (06:09)
--- NOTE | 2025-03-26 08:25 | P.PN ---
Subjective Progress Note Date: 03/26/25 This is a 74-year-old female who presented to the emergency department with complaints of dizziness and syncopal episode after she woke up yesterday morning. Patient reports she has felt like the room is spinning and feels like she could pass out again. Patient does have a history of vertigo but reports this feeling feels different. Patient denies any chest pain. She does report a few episodes of vomiting yesterday. Patient seen this morning laying in bed resting comfortably. She is still reporting vertigo. CT of the brain was normal. Home medications not listed at time of dictation. 03/26/2025 Patient seen this morning sitting up in bed resting comfortably. Patient reports her dizziness is improved. She was seen and evaluated by cardiology and neurology yesterday. Cardiology started her on metoprolol and amlodipine. Echo was done but result is not back yet. Neurology has ordered an MRI and started patient on meclizine. Patient is tolerating diet and her vitals are stable. Objective - Vital Signs Vital signs: Vital Signs Temp 98.0 F 03/26/25 07:00 Pulse 65 03/26/25 07:00 Resp 16 03/26/25 07:00 BP 122/75 03/26/25 07:00 Pulse Ox 95 03/26/25 07:00 FiO2 Intake & Output 03/25/25 03/26/25 03/26/25 18:59 06:59 18:59 Intake Total 300 Balance 300 Intake: Oral 300 Other: # Voids 4 2 - Constitutional General appearance: Present: cooperative, no acute distress - EENT Eyes: Present: PERRLA - Neck Neck: Present: normal ROM. Absent: lymphadenopathy, rigidity - Respiratory Respiratory: bilateral: CTA - Cardiovascular Heart sounds: normal: S1, S2 - Gastrointestinal General gastrointestinal: Present: soft. Absent: tenderness - Integumentary Integumentary: Present: normal, normal turgor - Musculoskeletal Musculoskeletal: Present: strength equal bilaterally - Psychiatric Psychiatric: Present: A&O x's 3, appropriate affect, intact judgment & insight - Labs CBC & Chem 7: 03/25/25 00:34 03/25/25 00:34 Assessment and Plan (1) Dizziness Current Visit: Yes Status: Acute Code(s): R42 - DIZZINESS AND GIDDINESS SNOMED Code(s): 574829859 (2) Near syncope Current Visit: Yes Status: Acute Code(s): R55 - SYNCOPE AND COLLAPSE SNOMED Code(s): 007097541 (3) Vertigo Current Visit: Yes Status: Acute Code(s): R42 - DIZZINESS AND GIDDINESS SNOMED Code(s): 822403795 (4) Hypothyroid Current Visit: Yes Status: Acute Code(s): E03.9 - HYPOTHYROIDISM, UNSPECIFIED SNOMED Code(s): 08893754 Plan: Await result of MRI. Anticipate possible discharge later today or tomorrow if MRI is normal. Patient seen and evaluated by nurse practitioner, physician in agreement with plan.
[2025-03-26 08:35] LABS: BUN/Creat Ratio 16.71 Ratio (12.00-20.00); Blood Urea Nitrogen 11.7 mg/dL (9.0-27.0); Chloride 109 mmol/L (96-109); Glucose 95 mg/dL (70-110); Potassium 3.9 mmol/L (3.5-5.5); Sodium 143 mmol/L (135-145)
[2025-03-26 08:36] LABS: ALT 21 U/L (8-44); AST 24 U/L (13-35); Albumin 3.8 g/dL (3.8-4.9); Albumin/Globulin Ratio 1.58 Ratio (1.60-3.17); Alkaline Phosphatase 78 U/L (41-126); Calcium 8.9 mg/dL (8.7-10.3); Globulin 2.4 g/dL (1.6-3.3); Phosphorus 3.2 mg/dL (2.4-5.1); Total Bilirubin 0.5 mg/dL (0.3-1.2); Total Protein 6.2 g/dL (6.2-8.2)
[2025-03-26 08:39] LABS: Basophils # (A) 0.07 X 10*3/uL (0.00-0.10); Basophils % (A) 0.7 %; Eosinophils # (A) 0.07 X 10*3/uL (0.04-0.35); Eosinophils % (A) 0.7 %; HCT 38.3 % (37.2-46.3); HGB 12.4 g/dL (12.0-15.0); Lymphocytes # (A) 3.01 X 10*3/uL (0.90-5.00); Lymphocytes % (A) 31.7 %; MCHC 32.4 g/dL (32.0-37.0); MCV 92.7 FL (80.0-97.0); Mean Platelet Volume 10.3 FL (9.5-12.2); Monocytes # (A) 0.67 X 10*3/uL (0.20-1.00); Monocytes % (A) 7.1 %; NRBC Per 100 WBC 0 X 10*3/uL (0.00-0.01); Neutrophils # (A) 5.64 X 10*3/uL (1.80-7.70); Neutrophils % (A) 59.5 %; Platelet Count 257 X 10*3/uL (140-440); RBC 4.13 X 10*6/uL (4.10-5.20); RDW 13.6 % (11.5-14.5); WBC 9.49 X 10*3/uL (4.50-10.00)
--- NOTE | 2025-03-26 09:41 | CA ---
Transthoracic Echo Report Name: Owen Willis Age: 74 Gender: F : 1950 Exam Date: 03/25/2025 09:46 Exam Location: [facility] Ht (in): 67 Wt (lb): 165 Ordering Physician: José Miguel Gama MD Attending/Referring Phys: Alloy Weigher Ana Guzmán RDCS Procedure CPT: Indications: vertigo Cardiac Hx: Technical Quality: Good Contrast 1: Total Dose (mL): Contrast 2: Total Dose (mL): MEASUREMENTS (Male / Female) Normal Values 2D ECHO LV Diastolic Diameter PLAX 5.2 cm 4.2 - 5.9 / 3.9 - 5.3 cm LV Systolic Diameter PLAX 3.6 cm IVS Diastolic Thickness 1.2 cm 0.6 - 1.0 / 0.6 - 0.9 cm LVPW Diastolic Thickness 1.3 cm 0.6 - 1.0 / 0.6 - 0.9 cm LV Relative Wall Thickness 0.5 LVOT Diameter 1.9 cm LV Diastolic Volume MOD BP 95.1 cm??? 67 - 155 / 56 - 104 cm??? LV Systolic Volume MOD BP 37.6 cm??? 22 - 58 / 19 - 49 cm??? LV Ejection Fraction MOD BP 60.5 % >= 55 % LV Cardiac Index MOD BP 2613.7 cm???/min???m??? LV Diastolic Volume MOD 4C 88.2 cm??? LV Systolic Volume MOD 4C 32.0 cm??? LV Ejection Fraction MOD 4C 63.7 % LV Cardiac Index MOD 4C 2552.4 cm???/min???m??? LV Diastolic Length 4C 7.0 cm LV Systolic Length 4C 5.9 cm LV Diastolic Volume MOD 2C 93.1 cm??? LV Systolic Volume MOD 2C 43.3 cm??? LV Ejection Fraction MOD 2C 53.5 % LV Cardiac Index MOD 2C 2264.7 cm???/min???m??? LV Diastolic Length 2C 7.7 cm LV Systolic Length 2C 6.1 cm LA Volume 66.7 cm??? 18 - 58 / 22 - 52 cm??? LA Volume Index 35.2 cm???/m??? 16 - 28 cm???/m??? DOPPLER AV Peak Velocity 134.8 cm/s AV Peak Gradient 7.3 mmHg AV Mean Velocity 94.2 cm/s AV Mean Gradient 3.9 mmHg AV Velocity Time Integral 26.9 cm LVOT Peak Velocity 113.4 cm/s LVOT Peak Gradient 5.1 mmHg LVOT Velocity Time Integral 24.1 cm LVOT Stroke Volume 66.2 cm??? LVOT Stroke Volume Index 35.5 ml/m??? LVOT Cardiac Index 3005.5 cm???/min???m??? AV Area Cont Eq vti 2.5 cm??? AV Area Cont Eq pk 2.3 cm??? MV Area PHT 3.8 cm??? Mitral E Point Velocity 74.7 cm/s Mitral A Point Velocity 101.1 cm/s Mitral E to A Ratio 0.7 MV Deceleration Time 198.3 ms TR Peak Velocity 253.9 cm/s TR Peak Gradient 25.8 mmHg Right Atrial Pressure 5.0 mmHg Pulmonary Artery Systolic Pressu 30.8 mmHg Right Ventricular Systolic Press 30.8 mmHg PV Peak Velocity 117.6 cm/s PV Peak Gradient 5.5 mmHg FINDINGS Left Ventricle Left ventricular ejection fraction is estimated at 60 %. Mildly increased septal wall thickness. Moderately increased posterior wall thickness. Left ventricular cavity size normal. No obvious regional wall motion abnormalities. Right Ventricle Mild right ventricular dilatation. Normal right ventricular global systolic function. Right ventricular systolic pressure within normal limits. Right Atrium Normal right atrial size. Left Atrium Moderately increased left atrial volume. Mildly increased left atrial area. Mitral Valve Structurally normal mitral valve. No evidence for mitral valve prolapse. No mitral stenosis. Trace mitral regurgitation. Aortic Valve Trileaflet aortic valve. No aortic valve stenosis or regurgitation. Tricuspid Valve Structurally normal tricuspid valve. No tricuspid stenosis. Mild tricuspid regurgitation. Tricuspid regurgitation jet directed toward the septum. Pulmonic Valve Pulmonic valve not well visualized. No pulmonic stenosis. Trace pulmonic regurgitation. Pericardium No pericardial effusion. Aorta Normal size aortic root and proximal ascending aorta. CONCLUSIONS Normal LV size and systolic function. Minimal mitral and tricuspid regurgitation. No pulmonary hypertension. No pericardial effusion Previewed by: Dr. Jax Castro MD (Electronically Signed) Final Date: 26 Mar 2025 09:39
--- NOTE | 2025-03-26 10:48 | P.PN ---
Subjective HISTORY OF PRESENT ILLNESS: This is a pleasant 74-year-old female past medical history significant for hypothyroidism. 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 We have been asked to see in consultation for syncope. Yesterday she went for a walk and after walking a short distance she started feeling weak in the legs wit h no strength. She had to go down to the ground to prevent falling. She did not have actual syncope or loss of consciousness. Today she still feels mildly lightheaded with position changes. No palpitations, chest pain or shortness of breath. Orthostatic vital signs negative, BP actually increases with position change. DIAGNOSTICS EKG reveals sinus rhythm with sinus arrhythmia heart rate of 76. Telemetry tracings indicate unremarkable with no arrhythmia or bradycardia noted. CT angiography is negative. Laboratory reviewed, CBC unremarkable, D-dimer negative, sodium 139, potassium 3.6, creatinine 0.65, NT proBNP 56 and troponin negative x 1. She takes no daily cardiac medications. 03/26/2025 Patient examined this morning at the bedside. Patient states she is feeling better this morning. She denies any chest pain or pressure. Denies any shortness of breath. Vital signs are stable. She has been evaluated by neurology and MRI of the brain is pending. Echocardiogram completed revealing ejection fraction 60%, minimal MR and minimal TR. PHYSICAL EXAM: VITAL SIGNS: Reviewed. GENERAL: Well-developed in no acute distress. NECK: Supple. No JVD or thyromegaly LUNGS: Respirations even and unlabored. Lungs essentially clear to auscultation bilaterally. HEART: Regular rate and rhythm. S1 and S2 heard. EXTREMITIES: Normal range of motion. No clubbing or cyanosis. Peripheral pulses intact. No lower extremity edema ASSESSMENT: Dizziness suggestive of vertigo Hypothyroidism Hypertension PLAN: Continue current cardiac medications Neurology following. MRI pending. Patient is currently stable from a cardiac standpoint with no further inpatient recommendations We will sign off. Please reconsult if needed. Nurse practitioner note has been reviewed by physician. Signing provider agrees with the documented findings, assessment, and plan of care documented by BOILER WELDER as a scribe. Objective - Vital Signs Vital signs: Vital Signs Temp 98.0 F 03/26/25 07:00 Pulse 65 03/26/25 07:00 Resp 16 03/26/25 07:00 BP 122/75 03/26/25 07:00 Pulse Ox 95 03/26/25 07:00 FiO2 Intake & Output 03/25/25 03/26/25 03/26/25 18:59 06:59 18:59 Intake Total 300 480 Balance 300 480 Intake: Oral 300 480 Other: # Voids 4 2 - Labs CBC & Chem 7: 03/26/25 04:23 03/26/25 04:23 Labs: Abnormal Lab Results - Last 24 Hours (Table) 03/26/25 Range/Units 04:23 Albumin/Globulin Ratio 1.58 L (1.60-3.17) Ratio
[2025-03-26 14:26] VITALS: BP 115/75; PULSE 63; TEMP 98.1
--- NOTE | 2025-03-26 15:31 | P.PN ---
Subjective Progress Note Date: 03/26/25 I am following up with the patient and patient feels she is drastically better today compared to initial presentation. Dizziness is drastically better. No new neurological issues. Objective - Vital Signs Vital signs: Vital Signs Temp 98.1 F 03/26/25 14:25 Pulse 63 03/26/25 14:25 Resp 16 03/26/25 14:25 BP 115/75 03/26/25 14:25 Pulse Ox 96 03/26/25 14:25 FiO2 Intake & Output 03/25/25 03/26/25 03/26/25 18:59 06:59 18:59 Intake Total 300 600 Balance 300 600 Intake: Oral 300 600 Other: # Voids 4 2 2 - Exam GENERAL: The patient is lying in bed and is not in acute distress. NEUROLOGICAL: Higher mental function: The patient is awake, alert, oriented to self, place and time. Patient is following commands. No aphasia and no neglect. Cranial nerves: The pupils are round, equal and reactive to light and accommodation. Visual rico are full to confrontation throughout. Extraocular movement is intact no nystagmus is noted. Facial sensation is normal to touch throughout. The facial strength is normal throughout. Hearing is normal bilaterally to hand rub. Tongue is midline and moved [id number] without any difficulty. No dysarthria is noted. Shoulder shrug is normal bilaterally. Motor: The strength is 5 over 5 throughout. Normal tone and bulk. Cerebellum: Normal finger to nose heel to cooper bilaterally. Sensation: Sensation is normal to touch throughout. Some of the workup during this hospital visit consisted of: Orthostatic vitals is negative. I reviewed the lab workup. CT of the head is reported as no acute intracranial hemorrhage. I reviewed the CT and agree with the report. CT angiography of the head and neck is reported as no significant stenosis. The echo is reported as normal left ventricular size and solid function. No pulmonary hypertension. - Labs CBC & Chem 7: 03/26/25 04:23 03/26/25 04:23 Labs: Abnormal Lab Results - Last 24 Hours (Table) 03/26/25 Range/Units 04:23 Albumin/Globulin Ratio 1.58 L (1.60-3.17) Ratio Assessment and Plan Assessment: This is a 74-year-old woman who presents emergency department because of dizziness upon waking up and she feels dizziness is with ambulation and she fell to the ground. She denies any loss of consciousness Acute vertigo and this seems more likely peripheral. Rule out stroke which seems unlikely---symptoms better today. Plan: Pending MRI of the brain with and without if unable to obtain it today then recommend a repeat CT of the head and if it is negative patient is cleared from neurology perspective. I started the patient on meclizine 25 mg 1 tablet 3 times daily scheduled for 7 days and after that as needed. Recommend follow-up with ENT and vestibular rehab therapy if the patient continues to have dizziness as an outpatient. Also recommend outpatient MRI of the brain with and without if unable to obtain as an inpatient. If MRI of the brain is negative then recommend the patient to be eval by ENT and recommend vestibular rehab therapy as an outpatient if continues to have symptoms. Will defer the rest of the medical management to primary and other specialist Time with Patient: Less than 30
--- NOTE | 2025-03-26 16:14 | P.DS ---
Providers Date of admission: 03/25/25 03:19 Expected date of discharge: 03/26/25 Attending physician: José Miguel Gama Consults: 03/25/25 03:15 Consult Physician Routine Consulting Provider: Naif Pérez Consult Reason/Comments: vertigo Do you want consulting provider notified?: Yes Primary care physician: José Miguel Gama [facility] Course: Chief complaint Vertigo and dizziness. History of present illness Owen Willis, a 74-year-old female, was admitted for vertigo and dizziness. Initial workup, including a CT scan, was nominal. She was found to have a slight elevation in blood pressure. She was started on amlodipine, metoprolol, and meclizine. Vertigo is currently at a minimum. ROS is normal. Past medical history History of hypertension. Admitted for vertigo and dizziness. Physical exam HEENT normocephalic atraumatic extra movements are intact tympanic membranes are clear to otoscopic exam oropharynx is nominal. Neck is supple Heart regular rate and rhythm no murmur Lungs: CTA Abdomen: soft non tender good BS normal and active Ext: no edema Psychiatric: Mood and affect nominal Imaging results - CT scan nominal Assessment - Vertigo - Dizziness - Hypertension Plan - Continue amlodipine and metoprolol 12.5 mg twice daily to manage blood pressure. - Continue meclizine 25 mg three times daily to manage vertigo symptoms. - Schedule an MRI as an outpatient to further evaluate neurological status after clearance from neurology. Prescription - Amlodipine - Metoprolol 12.5 mg, twice daily - Meclizine 25 mg, three times daily Appointments - MRI to be scheduled as an outpatient after clearance by neurology. Visit diagnoses suggestions (2) - Dizziness and giddiness [R42] - Essential (primary) hypertension [I10] Patient Condition at Discharge: Fair Plan - Discharge Summary New Discharge Prescriptions: New Meclizine [Antivert] 25 mg PO TID #45 tab Metoprolol Tartrate [Lopressor] 12.5 mg PO BID #60 tab amLODIPine [Norvasc] 5 mg PO DAILY #30 tab Continue Levothyroxine Sodium [Synthroid] 62.5 mcg PO DAILY Discharge Medication List Levothyroxine Sodium [Synthroid] 62.5 mcg PO DAILY 03/25/25 [History] Meclizine [Antivert] 25 mg PO TID #45 tab 03/26/25 [Rx] Metoprolol Tartrate [Lopressor] 12.5 mg PO BID #60 tab 03/26/25 [Rx] amLODIPine [Norvasc] 5 mg PO DAILY #30 tab 03/26/25 [Rx] Follow up Appointment(s)/Referral(s): Renan Strange MD [Medical Doctor] - 2 Weeks José Miguel Gama MD [Primary Care Provider] - 1 Week Discharge Disposition: HOME SELF-CARE
== END 2025-03-26 17:45 | disposition home or self-care (01) ==
LOC: EC 23:52 → 6NMEDSUR 03-25 03:19
PROVIDERS: ADMIT Family Medicine; ATTEND Family Medicine
DX: R42 Dizziness and giddiness (principal); R55 Syncope and collapse; I10 Essential (primary) hypertension; E03.9 Hypothyroidism, unspecified; Z79.890 Hormone replacement therapy; Z79.899 Other long term (current) drug therapy
CPT/HCPCS: 96374; 99285; 36415; 93005; 93306; 85379; 83880; 80053 ×2; 83605; 83735 ×2; 84100 ×2; 84484; 85025 ×2; 85610; 85730; 70496; 70450; 70498; G0378 ×2; J2405; Q9967

== ENCOUNTER → 2025-04-11 | Outpatient (CLI) | payer MEDICARE ==
--- NOTE | 2025-04-11 15:15 | MR ---
EXAMINATION TYPE: MR brain wo/w con DATE OF EXAM: 04/11/2025 1:35 PM COMPARISON: CT 03/25/2025 CLINICAL INDICATION: Female, 75 years old with history of R42 DIZZINESS AND GIDDINESS, vertigo. TECHNIQUE: Multiplanar, multisequence images of the brain and brainstem were acquired before and aft er administration of 7.5ml mL IV Gadobutrol. Diffusion weighted imaging is performed. FINDINGS: No evidence for acute infarction, hemorrhage, mass, mass effect, midline shift, herniation, effacemen t of basal cisterns, or extra-axial fluid collection. The ventricles and sulci are age-appropriate. Major intracranial flow voids are intact. T2/FLAIR weighted sequences show only a couple punctate bright signal foci in the white matter sugges ting trace burden of chronic small vessel ischemic disease. Midline structures demonstrate normal morphology. The craniocervical junction is normal. Post contrast images demonstrate no evidence of pathologic enhancement. Dural venous sinuses are pat ent. Mild to moderate mucosal thickening ethmoid air cells and trace within the maxillary sinuses. Globes are intact, myopic with the elongated appearance. IMPRESSION: 1. No acute intracranial abnormality or enhancing intracranial lesions. No significant white matter s ignal abnormalities. 2. Mild to moderate chronic ethmoid sinus disease.. [facility], , 04/11/2025 3:13 PM
== END | disposition home or self-care (01) ==
LOC: RADMRIMAIN 12:18
PROVIDERS: ATTEND Family Medicine
DX: R42 Dizziness and giddiness (principal); J32.2 Chronic ethmoidal sinusitis
CPT/HCPCS: 70553; A9585